=== PATIENT | male | born 1935 | race Caucasian/White ===

== ENCOUNTER 2017-01-17 09:24 | Inpatient (IN) ==
[2017-01-17] MEDS ORDERED: DILTIAZEM 50 MG/10 ML VIAL IV STA (10:11)
[2017-01-17] MEDS ORDERED: DILTIAZEM 50 MG/10 ML VIAL IV ONE (10:42)
[2017-01-17 10:56] LABS: Basophils # 0.1 10*3/uL (0.0-0.2); Basophils % 0.4 % (0.0-0.8); Eosinophils % 0.1 % (0.00-10.9); Hematocrit 41.9 VOL% (42.0-52.0); Hemoglobin 14.3 GM/DL (14.0-18.0); Immature Granulocytes % 3.5 %; Immature Granulocytes Absolute 0.59 #; Lymphocytes # 1.2 10*3/uL (1.4-4.0); Lymphocytes % 7.3 % (21.2-54.2); Mean Corpuscular HGB Conc 34.1 GM/DL (32-36); Mean Corpuscular Hemoglobin 32 PG (27-34); Mean Corpuscular Volume 92.7 FL (87-102); Mean Platelet Volume 11.2 FL (9.6-12.0); Monocytes # 1.3 10*3/uL (0.11-0.8); Monocytes % 7.7 % (1.7-12.7); Neutrophils # 13.8 10*3/uL (1.4-7.4); Platelet Count 251 T/CUMM (130-400); Red Blood Count 4.52 MC/CUMM (3.8-5.5); Red Cell Distribution Width 12.6 % (9.3-17.3)
[2017-01-17] MEDS ORDERED: LEVOFLOXACIN INJ 500 MG in PREMIX 1 EACH IV STA (11:18)
[2017-01-17 11:29] LABS: Free T4 (Free Thyroxine) 1.26 NG/DL (0.76-1.46); Magnesium 2.2 MG/DL (1.8-2.4)
[2017-01-17 11:31] LABS: Band Neutrophils 3 % (0-10); Giant Platelets Few; Hypochromasia 1+; Lymphocytes 10 % (20-55); Platelet Estimate Adequate; Segmented Neutrophils 77 % (50-85); Total Cells Counted 100
[2017-01-17 11:36] LABS: Alanine Aminotransferase 52 U/L (16-61); Albumin 2.4 G/DL (3.4-5.0); Alkaline Phosphatase 96 U/L (45-117); Aspartate Amino Transferase 59 U/L (0-37); Blood Urea Nitrogen 11 MG/DL (7-18); Calcium 8.6 MG/DL (8.5-10.1); Glucose 136 MG/DL (74-106); Potassium 3.4 MMOL/L (3.5-5.1); Sodium 136 MMOL/L (136-145); Total Protein 6.8 G/DL (6.4-8.3); Troponin I Only < 0.015 NG/ML (0.00-0.045)
[2017-01-17] MEDS ORDERED: LEVOFLOXACIN INJ 100 ML IV ONE (11:59)
[2017-01-17] MEDS ORDERED: ALBUTEROL 2.5 MG/3 ML NEB RESP TX PRN (12:49)
[2017-01-17] MEDS ORDERED: ACETAMINOPHEN 325 MG TABLET PO PRN (12:49)
[2017-01-17] MEDS: ALBUTEROL/IPRATROPIUM 3 ML NEB RESP TX SCH ×3 (14:00→23:50)
[2017-01-17] MEDS: DILTIAZEM INJ 100 MG in SODIUM CHLORIDE 0.9% 100 ML IV SCH ×2 (14:22→19:40)
[2017-01-17] MEDS: FAMOTIDINE 20 MG TABLET PO SCH (14:24)
[2017-01-17] MEDS: ENOXAPARIN 100 MG/ML SYRINGE SUBCUT SCH (15:27)
[2017-01-17 17:22] LABS: Apearance,Urine CLEAR (Clear); Bilirubin,Urine Negative (Negative); Blood, Urine Negative (Negative); Glucose,Urine (UA) Negative (Negative); Ketones,Urine 20 mg/dL (Negative); Mucus,Urine Occasional /LPF (Occasional); Nitrite,Urine Negative (Negative); Protein,Urine 100 MG/DL; RBC,Urine 6 /HPF (0-4); Squamous Epithelial Cell,Urine Occasional /HPF (0-10); Urine Specific Gravity 1.025 (1.001-1.035); WBC,Urine 26 /HPF (0-6)
[2017-01-17 17:23] LABS: Urine Color Dark yellow (Yellow)
[2017-01-17] MEDS: METOPROLOL TARTRATE 25 MG TABLET PO SCH (22:01)
[2017-01-18] MEDS: ALBUTEROL/IPRATROPIUM 3 ML NEB RESP TX SCH ×6 (02:26→23:24)
[2017-01-18] MEDS: ENOXAPARIN 100 MG/ML SYRINGE SUBCUT SCH (04:23)
[2017-01-18] MEDS: DILTIAZEM INJ 100 MG in SODIUM CHLORIDE 0.9% 100 ML IV SCH ×2 (04:24→13:10)
[2017-01-18 04:34] LABS: Basophils # 0.1 10*3/uL (0.0-0.2); Basophils % 0.5 % (0.0-0.8); Eosinophils % 0.1 % (0.00-10.9); Hematocrit 39.4 VOL% (42.0-52.0); Immature Granulocytes % 5.1 %; Lymphocytes # 1.8 10*3/uL (1.4-4.0); Lymphocytes % 11.6 % (21.2-54.2); Mean Corpuscular Hemoglobin 31 PG (27-34); Mean Corpuscular Volume 94.3 FL (87-102); Mean Platelet Volume 11.7 FL (9.6-12.0); Monocytes # 1.2 10*3/uL (0.11-0.8); Monocytes % 7.9 % (1.7-12.7); Neutrophils # 11.6 10*3/uL (1.4-7.4); Neutrophils % 74.8 % (38.7-73.9); Platelet Count 259 T/CUMM (130-400); Red Blood Count 4.18 MC/CUMM (3.8-5.5); Red Cell Distribution Width 12.7 % (9.3-17.3); White Blood Count 15.6 T/CUMM (4-12)
[2017-01-18 04:46] LABS: INR 1.1; PT Patient Result 11.6 SECS
[2017-01-18 04:55] LABS: Band Neutrophils 3 % (0-10); Giant Platelets Few; Hypochromasia 1+; Lymphocytes 8 % (20-55); Platelet Estimate Adequate; Segmented Neutrophils 82 % (50-85); Total Cells Counted 100
[2017-01-18 05:35] LABS: Calcium 7.9 MG/DL (8.5-10.1); Osmolality,Calculated 275.5 MOS/KG (273-304); Risk Ratio 4.16; VLDL CHOLESTEROL 20.6 MG/DL
[2017-01-18] MEDS: METOPROLOL TARTRATE 25 MG TABLET PO SCH (08:38)
[2017-01-18] MEDS: CLOPIDOGREL 75 MG TABLET PO SCH (08:38)
[2017-01-18] MEDS: FAMOTIDINE 20 MG TABLET PO SCH (08:38)
[2017-01-18] MEDS: LEVOFLOXACIN INJ 750 MG in PREMIX 1 EACH IV SCH (08:41)
[2017-01-18] MEDS ORDERED: PRAVASTATIN 40 MG TABLET PO SCH (09:00)
[2017-01-18] MEDS ORDERED: METOPROLOL TARTRATE 25 MG TABLET PO ONE (10:33)
[2017-01-18] MEDS: METOPROLOL TARTRATE 50 MG TABLET PO SCH ×2 (15:26→21:13)
[2017-01-18] MEDS: PRAVASTATIN 40 MG TABLET PO SCH (21:13)
[2017-01-18] MEDS: APIXABAN 5 MG TABLET PO SCH (21:13)
[2017-01-18] MEDS ORDERED: BISACODYL 5 MG TABLET PO PRN (23:53)
[2017-01-19] MEDS: DILTIAZEM INJ 100 MG in SODIUM CHLORIDE 0.9% 100 ML IV SCH ×2 (01:18→13:01)
[2017-01-19] MEDS: ALBUTEROL/IPRATROPIUM 3 ML NEB RESP TX SCH ×6 (02:47→23:52)
[2017-01-19 05:59] LABS: Basophils % 0.2 % (0.0-0.8); Eosinophils # 0.1 10*3/uL (0.0-0.87); Eosinophils % 0.9 % (0.00-10.9); Hematocrit 40.7 VOL% (42.0-52.0); Hemoglobin 13.8 GM/DL (14.0-18.0); Immature Granulocytes % 8.4 %; Immature Granulocytes Absolute 0.83 #; Lymphocytes # 1.5 10*3/uL (1.4-4.0); Lymphocytes % 14.6 % (21.2-54.2); Mean Corpuscular HGB Conc 33.9 GM/DL (32-36); Mean Corpuscular Hemoglobin 32 PG (27-34); Mean Corpuscular Volume 94.2 FL (87-102); Mean Platelet Volume 10.6 FL (9.6-12.0); Monocytes # 0.9 10*3/uL (0.11-0.8); Monocytes % 9.3 % (1.7-12.7); Neutrophils # 6.6 10*3/uL (1.4-7.4); Neutrophils % 66.6 % (38.7-73.9); Platelet Count 305 T/CUMM (130-400); Red Blood Count 4.32 MC/CUMM (3.8-5.5); Red Cell Distribution Width 12.9 % (9.3-17.3); White Blood Count 9.9 T/CUMM (4-12)
[2017-01-19 06:32] LABS: Calcium 8.1 MG/DL (8.5-10.1); Osmolality,Calculated 279.3 MOS/KG (273-304); Potassium 3.8 MMOL/L (3.5-5.1)
[2017-01-19 08:25] LABS: Hypochromasia 1+; Lymphocytes 15 % (20-55); Platelet Estimate Adequate; Polychromasia Slight; Segmented Neutrophils 76 % (50-85); Total Cells Counted 100
[2017-01-19] MEDS: FAMOTIDINE 20 MG TABLET PO SCH (08:38)
[2017-01-19] MEDS: LEVOFLOXACIN INJ 750 MG in PREMIX 1 EACH IV SCH (08:39)
[2017-01-19] MEDS: CLOPIDOGREL 75 MG TABLET PO SCH (08:39)
[2017-01-19] MEDS: APIXABAN 5 MG TABLET PO SCH ×2 (08:39→20:41)
[2017-01-19] MEDS: METOPROLOL TARTRATE 50 MG TABLET PO SCH (08:39)
[2017-01-19] MEDS: METOPROLOL SUCCINATE XL 50 MG TABLET PO SCH ×2 (13:01→20:41)
[2017-01-19] MEDS: cefTRIAXone 2,000 MG in SYRINGE 1 EACH IV SCH (14:44)
[2017-01-19] MEDS: PRAVASTATIN 40 MG TABLET PO SCH (20:41)
[2017-01-20] MEDS: ALBUTEROL/IPRATROPIUM 3 ML NEB RESP TX SCH ×6 (02:58→22:53)
[2017-01-20 05:46] LABS: Basophils % 0.3 % (0.0-0.8); Eosinophils # 0.1 10*3/uL (0.0-0.87); Eosinophils % 0.9 % (0.00-10.9); Hemoglobin 13.5 GM/DL (14.0-18.0); Immature Granulocytes % 10.5 %; Immature Granulocytes Absolute 1.03 #; Lymphocytes % 20.6 % (21.2-54.2); Mean Corpuscular HGB Conc 32.9 GM/DL (32-36); Mean Corpuscular Hemoglobin 32 PG (27-34); Mean Corpuscular Volume 95.6 FL (87-102); Mean Platelet Volume 10.6 FL (9.6-12.0); Monocytes # 0.8 10*3/uL (0.11-0.8); Monocytes % 8.1 % (1.7-12.7); Neutrophils # 5.8 10*3/uL (1.4-7.4); Neutrophils % 59.6 % (38.7-73.9); Platelet Count 351 T/CUMM (130-400); Red Blood Count 4.29 MC/CUMM (3.8-5.5); Red Cell Distribution Width 13.2 % (9.3-17.3); White Blood Count 9.8 T/CUMM (4-12)
[2017-01-20 06:20] LABS: Calcium 8.1 MG/DL (8.5-10.1); Magnesium 2.1 MG/DL (1.8-2.4); Osmolality,Calculated 277.4 MOS/KG (273-304); Potassium 4.2 MMOL/L (3.5-5.1)
[2017-01-20 08:26] LABS: Eosinophils 2 % (0-10); Lymphocytes 30 % (20-55); Segmented Neutrophils 67 % (50-85); Total Cells Counted 100
[2017-01-20 08:27] LABS: Macrocytosis 2+; Platelet Estimate Normal
[2017-01-20] MEDS: CLOPIDOGREL 75 MG TABLET PO SCH (08:48)
[2017-01-20] MEDS: METOPROLOL SUCCINATE XL 50 MG TABLET PO SCH (08:48)
[2017-01-20] MEDS: APIXABAN 5 MG TABLET PO SCH ×2 (08:48→20:47)
[2017-01-20] MEDS: LEVOFLOXACIN INJ 750 MG in PREMIX 1 EACH IV SCH (08:49)
[2017-01-20] MEDS: FAMOTIDINE 20 MG TABLET PO SCH (08:50)
[2017-01-20] MEDS: DILTIAZEM INJ 100 MG in SODIUM CHLORIDE 0.9% 100 ML IV SCH ×3 (10:53→23:45)
[2017-01-20] MEDS ORDERED: METOPROLOL TARTRATE 25 MG TABLET PO ONE (13:15)
[2017-01-20] MEDS: cefTRIAXone 2,000 MG in SYRINGE 1 EACH IV SCH (13:32)
[2017-01-20] MEDS: BENZONATATE 100 MG CAPSULE PO SCH ×3 (16:22→20:48)
[2017-01-20] MEDS: PRAVASTATIN 40 MG TABLET PO SCH (20:47)
[2017-01-21] MEDS: ALBUTEROL/IPRATROPIUM 3 ML NEB RESP TX SCH ×5 (02:50→20:05)
[2017-01-21 03:57] LABS: Basophils % 0.3 % (0.0-0.8); Eosinophils # 0.2 10*3/uL (0.0-0.87); Eosinophils % 1.7 % (0.00-10.9); Hematocrit 43.1 VOL% (42.0-52.0); Hemoglobin 14.1 GM/DL (14.0-18.0); Immature Granulocytes Absolute 1.09 #; Lymphocytes % 18.2 % (21.2-54.2); Mean Corpuscular HGB Conc 32.7 GM/DL (32-36); Mean Corpuscular Hemoglobin 31 PG (27-34); Mean Platelet Volume 10.3 FL (9.6-12.0); Monocytes # 0.8 10*3/uL (0.11-0.8); Monocytes % 7.7 % (1.7-12.7); NRBC # 0.02 10*3/uL; Neutrophils # 6.7 10*3/uL (1.4-7.4); Neutrophils % 62.1 % (38.7-73.9); Platelet Count 389 T/CUMM (130-400); Red Blood Count 4.49 MC/CUMM (3.8-5.5); Red Cell Distribution Width 13.2 % (9.3-17.3); White Blood Count 10.9 T/CUMM (4-12)
[2017-01-21 04:30] LABS: Calcium 8.5 MG/DL (8.5-10.1); Magnesium 2.1 MG/DL (1.8-2.4); Osmolality,Calculated 279.3 MOS/KG (273-304); Potassium 5.4 MMOL/L (3.5-5.1)
[2017-01-21 05:40] LABS: Band Neutrophils 4 % (0-10); Eosinophils 1 % (0-10); Lymphocytes 27 % (20-55); Metamyelocytes 4 %; Myelocytes 5 %; Platelet Estimate Normal; Promyelocytes 1 %; Segmented Neutrophils 54 % (50-85); Total Cells Counted 100
[2017-01-21] MEDS: APIXABAN 5 MG TABLET PO SCH ×2 (08:24→20:40)
[2017-01-21] MEDS: CLOPIDOGREL 75 MG TABLET PO SCH (08:24)
[2017-01-21] MEDS: BENZONATATE 100 MG CAPSULE PO SCH ×3 (08:24→20:40)
[2017-01-21] MEDS: LEVOFLOXACIN INJ 750 MG in PREMIX 1 EACH IV SCH (08:25)
[2017-01-21] MEDS: FAMOTIDINE 20 MG TABLET PO SCH (08:25)
[2017-01-21] MEDS ORDERED: DILTIAZEM CD 120 MG CAPSULE PO SCH (09:00)
[2017-01-21] MEDS: DILTIAZEM INJ 100 MG in SODIUM CHLORIDE 0.9% 100 ML IV SCH (13:09)
[2017-01-21] MEDS: cefTRIAXone 2,000 MG in SYRINGE 1 EACH IV SCH (14:08)
[2017-01-21] MEDS: PRAVASTATIN 40 MG TABLET PO SCH (20:39)
[2017-01-21] MEDS: DILTIAZEM CD 120 MG CAPSULE PO SCH (20:39)
[2017-01-22] MEDS: ALBUTEROL/IPRATROPIUM 3 ML NEB RESP TX SCH ×7 (00:51→20:42)
[2017-01-22 05:25] LABS: Basophils % 0.3 % (0.0-0.8); Eosinophils # 0.1 10*3/uL (0.0-0.87); Eosinophils % 1.2 % (0.00-10.9); Hematocrit 44.2 VOL% (42.0-52.0); Hemoglobin 14.8 GM/DL (14.0-18.0); Immature Granulocytes % 7.7 %; Lymphocytes # 1.6 10*3/uL (1.4-4.0); Lymphocytes % 15.1 % (21.2-54.2); Mean Corpuscular HGB Conc 33.5 GM/DL (32-36); Mean Corpuscular Hemoglobin 32 PG (27-34); Mean Corpuscular Volume 94.6 FL (87-102); Mean Platelet Volume 10.4 FL (9.6-12.0); Monocytes # 0.7 10*3/uL (0.11-0.8); Monocytes % 6.8 % (1.7-12.7); Neutrophils # 7.2 10*3/uL (1.4-7.4); Neutrophils % 68.9 % (38.7-73.9); Platelet Count 432 T/CUMM (130-400); Red Blood Count 4.67 MC/CUMM (3.8-5.5); Red Cell Distribution Width 13.3 % (9.3-17.3); White Blood Count 10.4 T/CUMM (4-12)
[2017-01-22 05:50] LABS: Eosinophils 1 % (0-10); Lymphocytes 13 % (20-55); Segmented Neutrophils 82 % (50-85); Total Cells Counted 100
[2017-01-22 05:51] LABS: Hypochromasia 1+
[2017-01-22 05:55] LABS: Calcium 8.1 MG/DL (8.5-10.1); Magnesium 2.1 MG/DL (1.8-2.4); Osmolality,Calculated 275.5 MOS/KG (273-304); Potassium 4.3 MMOL/L (3.5-5.1)
[2017-01-22] MEDS: LEVOFLOXACIN INJ 750 MG in PREMIX 1 EACH IV SCH (10:02)
[2017-01-22] MEDS: BENZONATATE 100 MG CAPSULE PO SCH ×3 (12:27→21:14)
[2017-01-22] MEDS: APIXABAN 5 MG TABLET PO SCH ×2 (12:27→21:13)
[2017-01-22] MEDS: CLOPIDOGREL 75 MG TABLET PO SCH (12:27)
[2017-01-22] MEDS: FAMOTIDINE 20 MG TABLET PO SCH (12:27)
[2017-01-22] MEDS: DILTIAZEM CD 120 MG CAPSULE PO SCH ×2 (12:27→21:12)
[2017-01-22] MEDS ORDERED: MIDAZOLAM 10 MG/2 ML VIAL ONE (13:29)
[2017-01-22] MEDS ORDERED: MEPERIDINE 25 MG/1 ML VIAL ONE (14:08)
[2017-01-22] MEDS: cefTRIAXone 2,000 MG in SYRINGE 1 EACH IV SCH (15:58)
[2017-01-22] MEDS: METOPROLOL TARTRATE 25 MG TABLET PO SCH ×3 (15:59→21:12)
[2017-01-22] MEDS: PRAVASTATIN 40 MG TABLET PO SCH (21:12)
[2017-01-23] MEDS: ALBUTEROL/IPRATROPIUM 3 ML NEB RESP TX SCH ×5 (01:07→15:50)
[2017-01-23 04:10] LABS: Basophils # 0.1 10*3/uL (0.0-0.2); Eosinophils # 0.1 10*3/uL (0.0-0.87); Eosinophils % 1.1 % (0.00-10.9); Hematocrit 43.2 VOL% (42.0-52.0); Hemoglobin 14.1 GM/DL (14.0-18.0); Immature Granulocytes % 5.8 %; Immature Granulocytes Absolute 0.61 #; Lymphocytes # 1.5 10*3/uL (1.4-4.0); Lymphocytes % 14.6 % (21.2-54.2); Mean Corpuscular HGB Conc 32.6 GM/DL (32-36); Mean Corpuscular Hemoglobin 31 PG (27-34); Mean Corpuscular Volume 95.8 FL (87-102); Mean Platelet Volume 10.4 FL (9.6-12.0); Monocytes # 0.7 10*3/uL (0.11-0.8); Monocytes % 7.1 % (1.7-12.7); Neutrophils # 7.4 10*3/uL (1.4-7.4); Neutrophils % 70.4 % (38.7-73.9); Platelet Count 434 T/CUMM (130-400); Red Blood Count 4.51 MC/CUMM (3.8-5.5); Red Cell Distribution Width 13.3 % (9.3-17.3); White Blood Count 10.5 T/CUMM (4-12)
[2017-01-23 04:45] LABS: Calcium 8.2 MG/DL (8.5-10.1); Magnesium 2.1 MG/DL (1.8-2.4); Osmolality,Calculated 275.7 MOS/KG (273-304); Potassium 4.2 MMOL/L (3.5-5.1)
[2017-01-23 04:46] LABS: Band Neutrophils 1 % (0-10); Lymphocytes 10 % (20-55); Platelet Estimate Adequate; Segmented Neutrophils 83 % (50-85); Total Cells Counted 100
[2017-01-23] MEDS: LEVOFLOXACIN INJ 750 MG in PREMIX 1 EACH IV SCH (09:22)
[2017-01-23] MEDS: BENZONATATE 100 MG CAPSULE PO SCH ×2 (10:04→16:02)
[2017-01-23] MEDS: CLOPIDOGREL 75 MG TABLET PO SCH (10:05)
[2017-01-23] MEDS: DILTIAZEM CD 120 MG CAPSULE PO SCH (10:05)
[2017-01-23] MEDS: APIXABAN 5 MG TABLET PO SCH (10:06)
[2017-01-23] MEDS: METOPROLOL TARTRATE 25 MG TABLET PO SCH ×2 (10:07→16:02)
[2017-01-23] MEDS: FAMOTIDINE 20 MG TABLET PO SCH (10:07)
[2017-01-23 11:27] VITALS: BP 138/68
[2017-01-23] MEDS ORDERED: SILVER SULFADIAZINE 1% CREAM 25 GM TUBE TOP SCH (12:30)
[2017-01-23] MEDS: cefTRIAXone 2,000 MG in SYRINGE 1 EACH IV SCH (16:17)
== END 2017-01-23 16:12 | disposition home or self-care (01) | DRG 308 ==
LOC: N.ED 09:24 → SUATTDRO 11:35 → N.EDINP 11:52 → N.TELEN 12:40
PROVIDERS: ADMIT Hospitalist; ATTEND Internal Medicine